=== PATIENT | female | born 1950 ===

== ENCOUNTER 2017-12-10 20:33 | Inpatient (IN) | payer MEDICAID ==
[~2017-12-10] VITALS: Ht 167.6 cm; Wt 63.5 kg
--- NOTE | 2017-12-10 22:20 | NUR ---
Dr. Tovar at bedside for MSE.
[2017-12-10] MEDS ORDERED: HYDROCODONE/APAP 5-325MG TABLET PO ONE (22:30)
[2017-12-10] MEDS ORDERED: HYDROCODONE/APAP 5-325MG TABLET ONE (22:34)
--- NOTE | 2017-12-10 23:00 | NUR ---
Patient in bed sleeping, no acute signs of distress.
--- NOTE | 2017-12-10 23:00 | NUR ---
Patient brought in by private ambulance. 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
[2017-12-11] MEDS ORDERED: VANCOMYCIN IV 1,000 MG in IV DEXTROSE 5% 250 ML IV ONE (00:15)
[2017-12-11] MEDS ORDERED: PIPERACILLIN SODIUM/TAZOBACTAM 3.375 G in IV DEXTROSE 5% 50 ML IV ONE (00:15)
[2017-12-11] MEDS ORDERED: ATOR40TA PO (00:37)
[2017-12-11] MEDS ORDERED: INSU100V7 SQ (00:37)
[2017-12-11] MEDS ORDERED: AMOX875T2 PO (00:37)
[2017-12-11] MEDS ORDERED: AMLO10TA2 PO (00:37)
[2017-12-11] MEDS ORDERED: sodium chloride PO (00:37)
[2017-12-11] MEDS ORDERED: BENA40TA2 PO (00:37)
[2017-12-11] MEDS ORDERED: RIVA20TA PO (00:37)
[2017-12-11] MEDS ORDERED: ASPI-605 PO (00:37)
[2017-12-11] MEDS ORDERED: GABA-534 PO (00:37)
[2017-12-11 00:45] LABS: BASOPHILS # (AUTO) 0.1 K/uL (0.0-8.0); BASOPHILS % (AUTO) 1.3 % (0.0-2.0); EOSINOPHILS # (AUTO) 0.1 K/uL (0.0-0.7); EOSINOPHILS % (AUTO) 1.5 % (0.0-7.0); HEMATOCRIT 25.1 % (31.2-41.9); HEMOGLOBIN 8.4 g/dL (10.9-14.3); LYMPHOCYTES # (AUTO) 2.1 K/uL (20.0-40.0); MEAN CORPUSCULAR HEMOGLOBIN 30.6 uug (24.7-32.8); MEAN CORPUSCULAR HGB CONC 33 g/dL (32.3-35.6); MEAN CORPUSCULAR VOLUME 91.7 fL (75.5-95.3); MONOCYTES # (AUTO) 0.4 K/uL (2.0-10.0); MONOCYTES % (AUTO) 7.3 % (0.0-11.0); NEUTROPHILS # (AUTO) 3.4 K/uL (1.8-8.9); NEUTROPHILS % (AUTO) 55.9 % (38.5-71.5); PLATELET COUNT (AUTO) 227 K/uL (179-408); RED BLOOD CELL COUNT(AUTO) 2.74 MIL/uL (3.63-4.92); WHITE BLOOD COUNT (AUTO) 6.1 K/uL (3.8-11.8)
[2017-12-11] MEDS ORDERED: PIPERACILLIN/TAZOBACTAM/D5W 50 ML IV ONE (00:45)
[2017-12-11] MEDS ORDERED: VANCOMYCIN IV 200 ML ONE (00:46)
--- NOTE | 2017-12-11 01:00 | NUR ---
Patient in bed sleeping, no acute signs of distress.
[2017-12-11 01:03] LABS: CARBON DIOXIDE 27 mmol/L (21-32); CHLORIDE 104 mmol/L (98-107); CREATININE 0.8 mg/dL (0.6-1.3); GLUCOSE 195 mg/dL (74-106); POTASSIUM 4.7 mmol/L (3.5-5.1); UREA NITROGEN, BLOOD 37 mg/dL (7-18)
[2017-12-11 01:15] LABS: ALANINE AMINOTRANSFERASE 37 U/L (14-59); ALKALINE PHOSPHATASE 131 U/L (50-136); ASPARTATE AMINOTRANSFERASE 28 U/L (15-37); BILIRUBIN,DIRECT < 0.1 mg/dL (0.0-0.2); BILIRUBIN,TOTAL 0.2 mg/dL (0.2-1.0); TOTAL PROTEIN, SERUM 7.6 g/dL (6.4-8.2)
--- NOTE | 2017-12-11 03:00 | NUR ---
Patient in bed sleeping, no acute signs of distress.
[2017-12-11 04:00] VITALS: BP 160/72
[2017-12-11] MEDS ORDERED: IV NS 1000 ML 1,000 ML IV ONE (04:45)
--- NOTE | 2017-12-11 04:55 | NUR ---
Dr. Tovar on panel call with Dr. Moreno.
--- NOTE | 2017-12-11 05:00 | NUR ---
Patient in bed sleeping, no acute signs of distress.
--- NOTE | 2017-12-11 05:45 | NUR ---
Passed report to Purnima MIGUEL Medsurg.
--- NOTE | 2017-12-11 07:30 | NUR ---
Received pt in bed awake. Alert and oriented x4, [place]an speaking only. On RA, No acute distress noted.Admitted for Right Foot Osteomyelitis. Right foot noted with Kerlix dressing in place. Left foot stump with sock, noted with dry scab. Oriented to call light and placed within reach.
[2017-12-11] MEDS: BLOOD SUGAR DIAGNOSTIC 1 EACH STRIP VI SCH ×4 (08:28→21:19)
[2017-12-11] MEDS ORDERED: DEXTROSE 50% 50 ML DISP.SYRIN IV PRN (08:30)
[2017-12-11] MEDS: INSULIN REGULAR, HUMAN 300 UNIT/3 ML VIAL SQ PRN ×3 (08:31→17:19)
[2017-12-11] MEDS: BENAZEPRIL HCL 20 MG TABLET PO SCH (09:00)
[2017-12-11] MEDS: AMLODIPINE 10 MG TABLET PO SCH (09:00)
--- NOTE | 2017-12-11 10:00 | NUR ---
Interviewed pt for general admission information Records Management Assistant ID: [id number]. Pt claims that she complained of her right foot condition at her previous facility and nothing was done about it. Will refer pt to manager social for follow up.
[2017-12-11] MEDS: GABAPENTIN 300 MG CAPSULE PO SCH ×3 (10:22→17:19)
[2017-12-11] MEDS: SODIUM CHLORIDE 1,000 MG TABLET PO SCH ×3 (10:22→17:19)
[2017-12-11] MEDS: ASPIRIN EC 81 MG TABLET.DR PO SCH (10:22)
[2017-12-11] MEDS ORDERED: AMOXICILLIN-CLAVUL 875-125MG TABLET PO SCH (11:30)
[2017-12-11] MEDS ORDERED: AMOX-430 PO (11:31)
[2017-12-11 11:32] VITALS: BP 104/51
--- NOTE | 2017-12-11 14:40 | NUR ---
WOUND CARE CONSULT: PT PRESENTS WITH MULTIPLE ESCHARS TO LOWER EXTREMITIES AND OPEN WOUND TO RT FOOT, PRESENT ON ADMISSION. PT NOTED TO HAVE SCARS TO BILATERAL LATERAL KNEES AND FRAGILE SACRAL SCAR. ALL SKIN PROTECTION AND WOUND CARE RECOMMENDATIONS DISCUSSED WITH NURSING STAFF. WILL SEE PRN. DOYLE IN AGREEMENT WITH PLAN OF CARE. CURRENT HUI SCORE IS 16. Addendum: 12/11/17 at 1442 by NURYS MAGANA RN Amended: Links added.
[2017-12-11 15:09] VITALS: BP 98/38
--- NOTE | 2017-12-11 16:31 | NUR ---
Spoke with Clifton from Dr. Ibarra office. Relayed that pt with order for Podiatry consult for R Foot Osteomylitis. Per Clifton, he will notify
[2017-12-11] MEDS: RIVAROXABAN 10 MG TABLET PO SCH (17:20)
--- NOTE | 2017-12-11 17:30 | NUR ---
Pt's daughter Jazmine at bedside. Answered all questions regarding pt's admitting diagnosis and social staff worker offered here at [facility]. Also requesting for release of information for personal use. Provided her with necessary paperwork.
--- NOTE | 2017-12-11 18:30 | NUR ---
Still awaiting [facility] bed for patient. Applied SCD. Jazmine Martin [phone] daughter at bedside gave number of social services specialist Gina as requested
--- NOTE | 2017-12-11 19:30 | NUR ---
PT IN ROOM ALERT AWAKE ORIENTED IN NO ACUTE DISTRESS. DENIES ANY PAIN OR DISCOMFORT. DRESSINGS INTACT TO RIGHT FOOT. NO S/S OF HYPER/HYPOGLYCEMIA. REMINDED PT TO REQEUST FOR ASSISTANCE WHEN NEEDED. ABLE TO FOLLOW SIMPLE COMMANDS. CONTINUE TO MONITOR. CALL LIGHT PLACED WITHIN REACH. PT TO START ON ATB IV.
--- NOTE | 2017-12-11 20:29 | NUR ---
CLINICAL PHARMACY NOTE: VANCOMYCIN DOSING Request for vancomycin dosing on 67 y/o female 167.64cm tall 63.5kg for right foot cellulitis Temp 98.6 BUN 37 Scr 0.8 WBC 6.1 also on cefepime Start vancomycin 1gm ivpb q18h estimated trough 13. Will order trough level prior to 4th dose. Will continue to monitor
[2017-12-11 20:44] VITALS: BP 107/54
[2017-12-11] MEDS ORDERED: CEFEPIME HCL 1 G in IV DEXTROSE 5% 50 ML IV SCH (21:00)
[2017-12-11] MEDS: ATORVASTATIN 40 MG TABLET PO SCH (21:14)
[2017-12-11] MEDS: CEFEPIME HCL 1 G in IV NORMAL SALINE 50 ML IV SCH (21:15)
[2017-12-11] MEDS: INSULIN GLARGINE,HUM 300 UNITS/3 ML CARTRIDGE SQ SCH (21:20)
[2017-12-11] MEDS: VANCOMYCIN IV 1 G in PREMIXED 0 EACH IV SCH (22:31)
[2017-12-12 05:38] VITALS: BP 125/54
--- NOTE | 2017-12-12 06:00 | NUR ---
PT IN ROOM ALERT AWAKE IN NO ACUTE DISTRESS. ABLE TO RECEIVE RECENT IV ATB WITH NO ADVERSE EFFECT. NO S/S OF HYPER/HYPOGLYCEMIA. NO ACTIVE DRAINAGE OR BLEEDING PRESENT TO AFFECTED AREAS ON LOWER EXTREMITIES. V/S ARE WNL. WOUND CULTURE TO RIGHT FOOT STILL PENDING. PT MADE AWARE OF AWAITING REPAIRER WOOD FURNITURE TO EVAL.
[2017-12-12] MEDS: PANTOPRAZOLE SODIUM 40 MG TABLET.DR PO SCH (06:12)
[2017-12-12] MEDS: BLOOD SUGAR DIAGNOSTIC 1 EACH STRIP VI SCH ×4 (06:59→21:14)
[2017-12-12] MEDS ORDERED: LIDOCAINE-MPF 1% 5 ML AMPUL MC STA (08:16)
[2017-12-12] MEDS: CEFEPIME HCL 1 G in IV NORMAL SALINE 50 ML IV SCH ×2 (08:54→21:19)
[2017-12-12] MEDS: GABAPENTIN 300 MG CAPSULE PO SCH ×3 (08:58→17:24)
[2017-12-12] MEDS: ASPIRIN EC 81 MG TABLET.DR PO SCH (08:58)
[2017-12-12] MEDS: SODIUM CHLORIDE 1,000 MG TABLET PO SCH ×3 (08:58→17:24)
[2017-12-12] MEDS: AMLODIPINE 10 MG TABLET PO SCH (08:58)
[2017-12-12] MEDS: BENAZEPRIL HCL 20 MG TABLET PO SCH (08:59)
--- NOTE | 2017-12-12 10:14 | NUR ---
PATIENT NOTED RESTING IN BED, STATES SHE HAS VERY LITTLE PAIN, NO SIGNS OF DISTRESS NOTED, CONSENT FOR SURGICAL DEBRIDEMENT SIGNED AND PLACED IN CHARGE, SURGICAL DEBRIDEMENT ON RIGHT FOOT PERFORMED BY MD JAMES. TOOK ALL AM MEDICATIONS WHOLE WITH OUT COMPLICATIONS, CALL LIGHT IN REACH BED LOCKED AND IN LOWEST POSITION.
[2017-12-12] MEDS: INSULIN REGULAR, HUMAN 300 UNIT/3 ML VIAL SQ PRN ×2 (11:21→17:12)
[2017-12-12 11:26] VITALS: BP 87/48
--- NOTE | 2017-12-12 12:02 | NUR ---
patient complaints of pain in right lower extremity, MD Galeano paged without response, awaiting returned call
[2017-12-12] MEDS ORDERED: HYDROCODONE/APAP 5-325MG TABLET PO PRN (13:15)
[2017-12-12 15:24] LABS: *BILIRUBIN,URIN NEGATIVE (NEGATIVE); *BLOOD, URINE 3+ (NEGATIVE); *COLOR,URINE YELLOW (YELLOW); *KETONES,URINE TRACE (NEGATIVE); *PROTEIN,URINE 1+ (NEGATIVE); *UROBILINOGEN,URINE 0.2 E.U./dl (NORMAL); LEUKOCYTE ESTERASE ,URINE NEGATIVE (NEGATIVE); NITRITE, URINE NEGATIVE (NEGATIVE); UGLUCOSE NEGATIVE (NEGATIVE)
[2017-12-12 15:28] VITALS: BP 82/49
[2017-12-12 15:51] LABS: *CLARITY,URINE SLIGHTLY CLOUDY (CLEAR)
[2017-12-12 15:54] LABS: BACTERIA,URINE FEW /HPF (NONE SEEN); MUCUS,URINE FEW /LPF (0-FEW); RBC,URINE 20-50 /HPF (0-3); SQUAMOUS EPITHELIAL CELL,UR MANY /HPF (NONE SEEN)
--- NOTE | 2017-12-12 16:03 | NUR ---
CLINICAL PHARMACY NOTE: VANCOMYCIN DOSING Continue vancomycin dosing on 67 y/o female 167.64cm tall 63.5kg for right foot cellulitis Temp 98.4 BUN 37(12/11) Scr 0.8 (12/11) WBC 6.1(12/09) also on cefepime Continue vancomycin 1gm ivpb q18h estimated trough 13. 3rd dose today at 1600. Will order trough level prior to 4th dose(not ordered yet). Will continue to monitor
[2017-12-12] MEDS: VANCOMYCIN IV 1 G in PREMIXED 0 EACH IV SCH (16:05)
[2017-12-12] MEDS: RIVAROXABAN 10 MG TABLET PO SCH (17:29)
--- NOTE | 2017-12-12 18:12 | NUR ---
UA COLLECTED VIA CLEAN CATCH AND SENT TO LAB, MD NIELSEN TELEPHONE ORDER 1)NORCO 5-325 PO Q6 HOUR PRN, 2)COLACE 200 MG PO CAPSULE HS
--- NOTE | 2017-12-12 19:30 | NUR ---
PT IN ROOM ALERT AWAKE IN NO ACUTE DISTRESS. DENIES ANY PAIN OR DISCOMFORT AT THIS TIME. NO INCREASED DRAINAGE OR BLEEDING NOTED TO RECENT DEBRIDEMENT PROCEDURE. PT REPOSITIONED AND REMINDED TO ASK FOR ASSISTANCE WHEN NEEDED. NO S/S OF HYPER/HYPOGLYCEMIA. CONTINUE TO MONITOR. CALL LIGHT PLACED WITHIN REACH.
[2017-12-12 20:37] VITALS: BP 99/54
[2017-12-12] MEDS: LACTOBACILLUS RHAMNOSUS GG 1 EACH CAPSULE PO SCH (21:18)
[2017-12-12] MEDS: INSULIN REGULAR, HUMAN 300 UNITS/3 ML VIAL SQ PRN (21:18)
[2017-12-12] MEDS: INSULIN GLARGINE,HUM 300 UNITS/3 ML CARTRIDGE SQ SCH (21:18)
[2017-12-12] MEDS: ATORVASTATIN 40 MG TABLET PO SCH (21:19)
[2017-12-12] MEDS: DOCUSATE SODIUM 100 MG CAPSULE PO SCH (21:19)
--- NOTE | 2017-12-13 01:00 | NUR ---
PT ASLEEP WITH NO C/O PAIN OR DISCOMFORT. SURGICAL DRESSING TO RIGHT FOOT INTACT WITH NO DRAINAGE OR ACTIVE BLEEDING NOTED. CONTINUE TO MONITOR.
--- NOTE | 2017-12-13 05:30 | NUR ---
PT IN ROOM ALERT AWAKE IN NO ACUTE DISTRESS. DRESSING TO RIGHT FOOT INTACT CLEAN AND DRY. NO REACTION TO RECENT MAXEPINE ABX IV THERAPY. NO FEVER, CHILLS, OR C/O SOB. ABLE TO FOLLOW SIMPLE COMMANDS. AIR MATTRESS IN PLACE WITH 3 SIDE RAILS RAISED. CONTINUE TO MONITOR. CALL LIGHT PLACED WITHIN REACH. PT REPOSITIONED AND REMINDED TO REQUEST FOR ASSISTANCE WHEN NEEDED.
[2017-12-13] MEDS: PANTOPRAZOLE SODIUM 40 MG TABLET.DR PO SCH (06:00)
[2017-12-13] MEDS: BLOOD SUGAR DIAGNOSTIC 1 EACH STRIP VI SCH ×4 (06:40→21:00)
[2017-12-13 06:42] VITALS: BP 116/65
--- NOTE | 2017-12-13 07:42 | NUR ---
received report from night nurse. patient stable, asleep with no s.s acute distress. call light noted to be within patients reach, will continue to monitor.
[2017-12-13] MEDS: SODIUM CHLORIDE 1,000 MG TABLET PO SCH ×3 (08:26→17:07)
[2017-12-13] MEDS: BENAZEPRIL HCL 20 MG TABLET PO SCH (08:29)
[2017-12-13] MEDS: AMLODIPINE 10 MG TABLET PO SCH (08:31)
[2017-12-13] MEDS: ASPIRIN EC 81 MG TABLET.DR PO SCH (08:31)
[2017-12-13] MEDS: GABAPENTIN 300 MG CAPSULE PO SCH ×3 (08:36→17:07)
[2017-12-13] MEDS: CEFEPIME HCL 1 G in IV NORMAL SALINE 50 ML IV SCH ×2 (08:36→21:18)
[2017-12-13] MEDS: LACTOBACILLUS RHAMNOSUS GG 1 EACH CAPSULE PO SCH ×2 (08:36→21:20)
[2017-12-13] MEDS: INSULIN REGULAR, HUMAN 300 UNIT/3 ML VIAL SQ PRN ×2 (08:47→11:29)
[2017-12-13] MEDS ORDERED: SODIUM HYPOCHLORITE 0.25% 480 ML BOTTLE TOP SCH (09:00)
--- NOTE | 2017-12-13 10:59 | NUR ---
CLINICAL PHARMACY NOTE: VANCOMYCIN DOSING S: Continue vancomycin dosing on 67 y/o female 167.64cm tall 63.5kg for right foot cellulitis O: Temp 98.8 BUN 37(12/11) Scr 0.8 (12/11) WBC 6.1(12/09) Plan Continue vancomycin 1gm ivpb q18h for now. 3rd dose today at 1000. Will order trough level prior to 4th dose(ordered for 12/14 at 0330-RN has been informed to hold 0400am dose if vanco trough level is above 20 mcg/ml). Pharmacy shall check the level in am & adjust the dose if needed. Will continue to monitor
[2017-12-13 11:03] VITALS: BP 104/48
[2017-12-13] MEDS: VANCOMYCIN IV 1 G in PREMIXED 0 EACH IV SCH (11:21)
[2017-12-13] MEDS: SODIUM HYPOCHLORITE 0.25% 480 ML BOTTLE TOP SCH (12:30)
[2017-12-13 15:08] VITALS: BP 115/69
[2017-12-13] MEDS: RIVAROXABAN 10 MG TABLET PO SCH (17:08)
--- NOTE | 2017-12-13 18:58 | NUR ---
patient stable this shift. no s.s distress or c/o pain. wound cleaned, dry dressing intact. VSS. IV antibiotics continuing. will endorse to rn night
[2017-12-13 20:00] VITALS: BP 144/73
[2017-12-13] MEDS: DOCUSATE SODIUM 100 MG CAPSULE PO SCH (21:19)
[2017-12-13] MEDS: ATORVASTATIN 40 MG TABLET PO SCH (21:20)
[2017-12-13] MEDS: INSULIN REGULAR, HUMAN 300 UNITS/3 ML VIAL SQ PRN (23:20)
[2017-12-13] MEDS: INSULIN GLARGINE,HUM 300 UNITS/3 ML CARTRIDGE SQ SCH (23:22)
[2017-12-14 04:47] VITALS: BP 113/61
[2017-12-14] MEDS: VANCOMYCIN IV 1 G in PREMIXED 0 EACH IV SCH ×2 (05:45→20:13)
[2017-12-14 06:32] LABS: BASOPHILS % (AUTO) 0.8 % (0.0-2.0); EOSINOPHILS # (AUTO) 0.1 K/uL (0.0-0.7); EOSINOPHILS % (AUTO) 1.2 % (0.0-7.0); HEMATOCRIT 28.1 % (31.2-41.9); HEMOGLOBIN 9.3 g/dL (10.9-14.3); LYMPHOCYTES # (AUTO) 1.7 K/uL (20.0-40.0); LYMPHOCYTES % (AUTO) 28.8 % (20.5-51.5); MEAN CORPUSCULAR HEMOGLOBIN 30.4 uug (24.7-32.8); MEAN CORPUSCULAR HGB CONC 33 g/dL (32.3-35.6); MEAN CORPUSCULAR VOLUME 91.3 fL (75.5-95.3); MONOCYTES # (AUTO) 0.4 K/uL (2.0-10.0); MONOCYTES % (AUTO) 6.5 % (0.0-11.0); NEUTROPHILS # (AUTO) 3.6 K/uL (1.8-8.9); NEUTROPHILS % (AUTO) 62.7 % (38.5-71.5); PLATELET COUNT (AUTO) 222 K/uL (179-408); RED BLOOD CELL COUNT(AUTO) 3.08 MIL/uL (3.63-4.92); WHITE BLOOD COUNT (AUTO) 5.8 K/uL (3.8-11.8)
[2017-12-14 06:33] LABS: ALANINE AMINOTRANSFERASE 42 U/L (14-59); ALKALINE PHOSPHATASE 100 U/L (50-136); ASPARTATE AMINOTRANSFERASE 26 U/L (15-37); BILIRUBIN,TOTAL 0.4 mg/dL (0.2-1.0); CARBON DIOXIDE 27 mmol/L (21-32); CHLORIDE 104 mmol/L (98-107); CREATININE 0.4 mg/dL (0.6-1.3); GLUCOSE 113 mg/dL (74-106); MAGNESIUM 1.9 mg/dL (1.8-2.4); PHOSPHOROUS 3.6 mg/dL (2.5-4.9); POTASSIUM 3.8 mmol/L (3.5-5.1); TOTAL PROTEIN, SERUM 7.6 g/dL (6.4-8.2); UREA NITROGEN, BLOOD 12 mg/dL (7-18)
[2017-12-14] MEDS: PANTOPRAZOLE SODIUM 40 MG TABLET.DR PO SCH (06:33)
[2017-12-14] MEDS: BLOOD SUGAR DIAGNOSTIC 1 EACH STRIP VI SCH ×4 (06:34→20:14)
--- NOTE | 2017-12-14 07:40 | NUR ---
received report from night nurse. patient stable, asleep with no s.s acute distress. call light noted to be within patients reach, will continue to monitor.
[2017-12-14] MEDS: INSULIN REGULAR, HUMAN 300 UNIT/3 ML VIAL SQ PRN ×3 (07:49→16:37)
[2017-12-14] MEDS: LACTOBACILLUS RHAMNOSUS GG 1 EACH CAPSULE PO SCH ×2 (08:25→20:13)
[2017-12-14] MEDS: GABAPENTIN 300 MG CAPSULE PO SCH ×3 (08:25→16:03)
[2017-12-14] MEDS: ASPIRIN EC 81 MG TABLET.DR PO SCH (08:25)
[2017-12-14] MEDS: SODIUM CHLORIDE 1,000 MG TABLET PO SCH ×3 (08:25→16:03)
[2017-12-14] MEDS: AMLODIPINE 10 MG TABLET PO SCH (08:26)
[2017-12-14] MEDS: BENAZEPRIL HCL 20 MG TABLET PO SCH (08:26)
[2017-12-14] MEDS: CEFEPIME HCL 1 G in IV NORMAL SALINE 50 ML IV SCH (08:38)
[2017-12-14] MEDS: SODIUM HYPOCHLORITE 0.25% 480 ML BOTTLE TOP SCH (08:39)
[2017-12-14 12:58] VITALS: BP 111/53
--- NOTE | 2017-12-14 15:10 | NUR ---
CLINICAL PHARMACY NOTE: VANCOMYCIN DOSING S: Continue vancomycin dosing on 67 y/o female 167.64cm tall 63.5kg for right foot cellulitis O: Temp 98.7 BUN 12 Scr 0.4 WBC 5.8 Vancomycin trough today at 0330 :11.3 A/P: Since Vancomycin trough is under 15, will change dose to 1 gram IV every 15 hrs(second dose today at 2000) and draw trough by 4th dose(not ordered yet) for expected trough around 15. Will monitor daily.
[2017-12-14 15:24] VITALS: BP 112/60
[2017-12-14] MEDS: RIVAROXABAN 10 MG TABLET PO SCH (17:32)
[2017-12-14] MEDS: LEVOFLOXACIN 500 MG TABLET PO SCH (20:00)
--- NOTE | 2017-12-14 20:00 | NUR ---
RECEIVED PATIENT AWAKE IN BED, SHE'S AOX3 MAINLY CITIZEN OF [place] SPEAKING. SHE DENIES ANY PAIN OR DISTRESS ON ASSESSMENT. SAFETY MEASURES IN PLACE, CALL LIGHT LEFT WITHIN PATIENT'S REACH
[2017-12-14] MEDS: DOCUSATE SODIUM 100 MG CAPSULE PO SCH (20:13)
[2017-12-14] MEDS: ATORVASTATIN 40 MG TABLET PO SCH (20:14)
[2017-12-14] MEDS: INSULIN GLARGINE,HUM 300 UNITS/3 ML CARTRIDGE SQ SCH (21:00)
[2017-12-15 04:00] VITALS: BP 119/60
[2017-12-15] MEDS: PANTOPRAZOLE SODIUM 40 MG TABLET.DR PO SCH (06:20)
[2017-12-15] MEDS: BLOOD SUGAR DIAGNOSTIC 1 EACH STRIP VI SCH ×4 (06:24→21:28)
--- NOTE | 2017-12-15 06:38 | NUR ---
PATIENT SLEPT WELL THROUGHOUT THE SHIFT, SHE DENIED PAIN OR ANY DISTRESS.V/S STABLE, NO FEVER.NO SIGNIFICANT CHANGES IN STATUS ON THIS SHIFT. SAFETY AND COMFORT MEASURES MAINTAINED AT ALL TIMES, CALL LIGHT LEFT WITHIN PATIENT'S REACH
--- NOTE | 2017-12-15 07:56 | NUR ---
RECEIVED PATIENT ON FIRST STEP ALEXA AWAKE ALERT MOSTLY [place] BUT UNDERSTANDS SOME POLISH PATIENT HAS A PERIPHERAL LINE ON HER LEFT FOREARM AND A PICC LINE ON HER RIGHT UPPER ARM ATTEMPTED TP REMOVE THE PERIPHERAL LINE BUT PATIENT REFUSED DOES NOT WANT ME TO TOUCH THE PICC LINE AT THIS TIME.DUE INSULIN GIVEN AND PATIENT ATE BREAKFAST.TURNED AND REPOSITIONED Q2H AND MADE COMFORTABLE.
[2017-12-15] MEDS: INSULIN REGULAR, HUMAN 300 UNIT/3 ML VIAL SQ PRN ×3 (07:57→17:09)
[2017-12-15] MEDS: LACTOBACILLUS RHAMNOSUS GG 1 EACH CAPSULE PO SCH ×2 (08:36→20:04)
[2017-12-15] MEDS: GABAPENTIN 300 MG CAPSULE PO SCH ×3 (08:36→17:02)
[2017-12-15] MEDS: ASPIRIN EC 81 MG TABLET.DR PO SCH (08:36)
[2017-12-15] MEDS: SODIUM CHLORIDE 1,000 MG TABLET PO SCH ×3 (08:36→17:02)
[2017-12-15] MEDS: SODIUM HYPOCHLORITE 0.25% 480 ML BOTTLE TOP SCH (08:36)
[2017-12-15] MEDS: BENAZEPRIL HCL 20 MG TABLET PO SCH (08:37)
[2017-12-15] MEDS: AMLODIPINE 10 MG TABLET PO SCH (08:37)
[2017-12-15] MEDS: VANCOMYCIN IV 1 G in PREMIXED 0 EACH IV SCH (11:36)
[2017-12-15 12:02] VITALS: BP 108/55
[2017-12-15] MEDS ORDERED: RXVAN XX (12:16)
[2017-12-15] MEDS ORDERED: VANC1PLA10 IV (12:16)
[2017-12-15] MEDS ORDERED: DOCU100C36 PO (12:16)
[2017-12-15] MEDS ORDERED: LEVO500T2 PO (12:16)
[2017-12-15] MEDS ORDERED: LACT1CAP57 PO (12:16)
[2017-12-15] MEDS ORDERED: PANT40TA2 PO (12:16)
--- NOTE | 2017-12-15 14:08 | NUR ---
PATIENT HAS A DISCHARGE ORDER SO I CALLED THE ANIMAL ANATOMY TEACHER RE PLACEMENT AND SHE STATED THAT THERE IS A PLACEMENT ISSUES AT THIS TIME WILL LET ME KNOW WHEN IT IS RESOLVED
--- NOTE | 2017-12-15 15:30 | NUR ---
CLINICAL PHARMACY NOTE: VANCOMYCIN DOSING S: Continue vancomycin dosing on 67 y/o female 167.64cm tall 63.5kg for right foot cellulitis O: Temp 98.3 BUN 12 (12/14) Scr 0.4 (12/14) WBC 5.8 (12/14) Vancomycin trough pending 0130 A/P: Will continue 1 gram IV every 15 hrs and draw trough by 4th dose(due tomorrow early am 0) for expected trough around 15. RN endorsed to hold dose if tr >20. Will check level in am and adjust as needed. Will monitor daily.
[2017-12-15 16:02] VITALS: BP 104/57
[2017-12-15] MEDS: RIVAROXABAN 10 MG TABLET PO SCH (17:03)
--- NOTE | 2017-12-15 18:00 | NUR ---
RESTING DENIES PAIN OR DISCOMFORTS TREATMENT TO RIGHT FOOT ORDERED PICTURES TAKEN AND DOCUMENTED MADE COMFORTABLE.
[2017-12-15] MEDS: LEVOFLOXACIN 500 MG TABLET PO SCH (18:36)
[2017-12-15 20:00] VITALS: BP 116/70
[2017-12-15] MEDS: ATORVASTATIN 40 MG TABLET PO SCH (20:04)
[2017-12-15] MEDS: DOCUSATE SODIUM 100 MG CAPSULE PO SCH (20:04)
[2017-12-15] MEDS: INSULIN GLARGINE,HUM 300 UNITS/3 ML CARTRIDGE SQ SCH (21:30)
[2017-12-16] MEDS ORDERED: VANCOMYCIN 1000 MG VIAL ONE (02:40)
[2017-12-16] MEDS: VANCOMYCIN IV 1 G in PREMIXED 0 EACH IV SCH ×2 (02:55→16:50)
[2017-12-16 06:01] VITALS: BP 153/80
[2017-12-16] MEDS: BLOOD SUGAR DIAGNOSTIC 1 EACH STRIP VI SCH ×4 (06:30→20:13)
[2017-12-16] MEDS: PANTOPRAZOLE SODIUM 40 MG TABLET.DR PO SCH (06:30)
--- NOTE | 2017-12-16 07:30 | NUR ---
ON FIRST STEP ALEXA FOR DECUB MANAGEMENT ALERT AND ORIENTED DENIES PAIN OR DISCOMFORTS.PICC LINE ON RIGHT UPPER ARM IS INTACT FLUSHED PER PROTOCOL MADE COMFORTABLE AND WILL COMTINUE TO OBSERVE.
[2017-12-16] MEDS: INSULIN REGULAR, HUMAN 300 UNIT/3 ML VIAL SQ PRN ×2 (07:56→12:01)
[2017-12-16] MEDS: ASPIRIN EC 81 MG TABLET.DR PO SCH (08:46)
[2017-12-16] MEDS: GABAPENTIN 300 MG CAPSULE PO SCH ×3 (08:46→16:45)
[2017-12-16] MEDS: SODIUM CHLORIDE 1,000 MG TABLET PO SCH ×3 (08:46→16:45)
[2017-12-16] MEDS: LACTOBACILLUS RHAMNOSUS GG 1 EACH CAPSULE PO SCH ×2 (08:46→20:10)
[2017-12-16] MEDS: BENAZEPRIL HCL 20 MG TABLET PO SCH (08:47)
[2017-12-16] MEDS: AMLODIPINE 10 MG TABLET PO SCH (08:47)
[2017-12-16] MEDS: SODIUM HYPOCHLORITE 0.25% 480 ML BOTTLE TOP SCH (08:49)
[2017-12-16 11:10] VITALS: BP 104/68
[2017-12-16 15:30] VITALS: BP 123/63
--- NOTE | 2017-12-16 15:56 | NUR ---
CLINICAL PHARMACY NOTE: VANCOMYCIN DOSING S: Continue vancomycin dosing on 67 y/o female 167.64cm tall 63.5kg for right foot cellulitis O: Temp 98.6 BUN 12 (12/14) Scr 0.4 (12/14) WBC 5.8 (12/14) Vancomycin trough 17.7 today at 0330 A/P: Since trough is within the range , will continue 1 gram IV every 15 hrs for now(5th dose due today at 1700). Will continue to monitor.
--- NOTE | 2017-12-16 16:00 | NUR ---
I FINALLY WAS ABLE TO CONVINCE PATIENT TO REMOVE THE HEPLOCK ON THE LEFT FOREARM SINCE SHE ALREADY HAS THE PICC LINE ON THE RIGHT UPPER ARM AND ITS PATENT AND FUNCTIONING AT THIS TIME.
--- NOTE | 2017-12-16 18:00 | NUR ---
TREATMENT REMAINS IN PROGRESS ORDERED WITH NO DRAINGE NOTED AT THIS TIME.REMAIN ON IV ANTIBIOTICS WITH NO ADVERSE OR ALLERGIC REACTIONS AT THIS TIME.MADE COMFORTABLE AND WILL CONTINUE TO OBSERVE.
[2017-12-16] MEDS: LEVOFLOXACIN 500 MG TABLET PO SCH (18:19)
[2017-12-16] MEDS: RIVAROXABAN 10 MG TABLET PO SCH (18:20)
--- NOTE | 2017-12-16 19:30 | NUR ---
PT RECEIVED IN BED, AWAKE. DAUGHTER AT BEDSIDE. A/OX2. [place] SPEAKING, BUT ABLE TO MAKE NEEDS KNOWN. V/S STABLE. IN NO ACUTE DISTRESS. NO C/O PAIN AT THIS TIME. PICC LINE INTACT AND PATENT. ON RA, TOLERATING WELL. AFEBRILE. ON FIRST STEP MATTRESS WITH HOB ELEVATED. SAFETY MEASURES IMPLEMENTED. BED ALARM SET. CALL LIGHT WITHIN REACH.
[2017-12-16] MEDS: ATORVASTATIN 40 MG TABLET PO SCH (20:10)
[2017-12-16] MEDS: DOCUSATE SODIUM 100 MG CAPSULE PO SCH ×2 (20:10→20:51)
[2017-12-16] MEDS: INSULIN GLARGINE,HUM 300 UNITS/3 ML CARTRIDGE SQ SCH (20:15)
[2017-12-16] MEDS: INSULIN REGULAR, HUMAN 300 UNITS/3 ML VIAL SQ PRN (20:17)
[2017-12-16 20:50] VITALS: BP 112/57
[2017-12-17 05:26] VITALS: BP 110/52
--- NOTE | 2017-12-17 05:50 | NUR ---
END OF SHIFT NOTES. PT SLEPT WELL THROUGHOUT SHIFT. IN STABLE CONDITION. BLOOD GLUCOSE CONTROLLED. TOLERATED RA, WELL. AFEBRILE. PICC LINE INTACT AND PATENT, HEP-LOCKED. CONT ON FIRST STEP MATTRESS. HOB REMAINS ELEVATED. ALL NEEDS ATTENDED. SAFETY MAINTAINED. CALL LIGHT WITHIN REACH.
[2017-12-17] MEDS: PANTOPRAZOLE SODIUM 40 MG TABLET.DR PO SCH (06:06)
[2017-12-17] MEDS: BLOOD SUGAR DIAGNOSTIC 1 EACH STRIP VI SCH ×2 (06:31→11:27)
--- NOTE | 2017-12-17 07:45 | NUR ---
RECEIVED PATIENT AWAKE ALERT AND AWARE WITH DAUGHTER AT HER BEDSIDE DENIES PAIN OR DISCOMFORTS AT THIS TIME.ON ROOM AIR WITH NO SHORTNESS OF BREATH NO S/S OF HYPO/HYPERGLYCEMIC REACTIONS AT THIS TIME.ON FIRST STEP MATTRASS FOR COMFORT AND TO MAINTAIN PROPER SKIN INTERGRITY.ASSISTED WITH REPOSITIONING DRESSING ON HER RIGHT FOOT REMAINS INTACT WITH DRESSING DRY AND INTACT MADE COMFORTABLE AND WILL CONTINUE TO OBSERVE.
[2017-12-17] MEDS: VANCOMYCIN IV 1 G in PREMIXED 0 EACH IV SCH (08:17)
[2017-12-17] MEDS: BENAZEPRIL HCL 20 MG TABLET PO SCH (08:40)
[2017-12-17] MEDS: SODIUM CHLORIDE 1,000 MG TABLET PO SCH ×2 (08:40→12:27)
[2017-12-17] MEDS: LACTOBACILLUS RHAMNOSUS GG 1 EACH CAPSULE PO SCH (08:40)
[2017-12-17] MEDS: ASPIRIN EC 81 MG TABLET.DR PO SCH (08:40)
[2017-12-17] MEDS: GABAPENTIN 300 MG CAPSULE PO SCH ×2 (08:40→12:27)
[2017-12-17] MEDS: AMLODIPINE 10 MG TABLET PO SCH (08:41)
[2017-12-17] MEDS: SODIUM HYPOCHLORITE 0.25% 480 ML BOTTLE TOP SCH (08:42)
--- NOTE | 2017-12-17 09:56 | NUR ---
CLINICAL PHARMACY NOTE: VANCOMYCIN DOSING S: Continue vancomycin dosing on 67 y/o female 167.64cm tall 63.5kg for right foot cellulitis O: Temp 98.6 BUN 12 (12/14) Scr 0.4 (12/14) WBC 5.8 (12/14) Vancomycin trough 17.7 (12/16) A/P: Will continue same dose of 1 gram IVPB every 15 hrs for today. Next dose is due today at 2300. Will continue to monitor.
[2017-12-17 11:50] VITALS: BP 151/75
[2017-12-17] MEDS: INSULIN REGULAR, HUMAN 300 UNIT/3 ML VIAL SQ PRN (12:27)
[2017-12-17 15:10] VITALS: BP 120/67
--- NOTE | 2017-12-17 15:15 | NUR ---
CALLED THE [facility] AND REPORT GIVEN TO LEANNE FOR CONTINUING CARE PATIENT WILL CONTINUE ON IV ANTIBIOTICS ORDERED PATIENT HAS A PICC LINE THAT IS INTACT AND PATENT.AMBULANCE WILL KEY ACCOUNT REPRESENTATIVE AT 1530 AND THE PATIENTS DAUGHTER NEVAEH IS AWARE OF DISCHARGE PLANS TO THE [facility]
--- NOTE | 2017-12-17 16:15 | NUR ---
PATIENT DISCHARGED PICKED UP BY THE AMBULANCE IN SATISFACTORY CONDITION WILL ALL HER /HER DAUGHTERS PERSONAL BELONGINGS.
== END 2017-12-17 16:15 | DRG 952 ==
LOC: ER 20:36 → TELE 12-11 05:33 → MED 12-11 14:15
PROVIDERS: ADMIT Internal Medicine; ATTEND Internal Medicine
PROC: 0QBN0ZZ Excision of Right Metatarsal, Open Approach (ICD-10-PCS; principal; 2017-12-12)
PROC: 05HY33Z Insertion of Infusion Device into Upper Vein, Percutaneous Approach (ICD-10-PCS; 2017-12-14)
DX: E11.52 Type 2 diabetes mellitus with diabetic peripheral angiopathy with gangrene (principal); E11.621 Type 2 diabetes mellitus with foot ulcer; E11.42 Type 2 diabetes mellitus with diabetic polyneuropathy; I48.91 Unspecified atrial fibrillation; L03.115 Cellulitis of right lower limb; E11.69 Type 2 diabetes mellitus with other specified complication; M86.8X7 Other osteomyelitis, ankle and foot; Z89.421 Acquired absence of other right toe(s); Z79.01 Long term (current) use of anticoagulants; Z79.4 Long term (current) use of insulin; Z79.899 Other long term (current) drug therapy; E78.5 Hyperlipidemia, unspecified; Z89.512 Acquired absence of left leg below knee; L97.514 Non-pressure chronic ulcer of other part of right foot with necrosis of bone; Z79.82 Long term (current) use of aspirin; I10 Essential (primary) hypertension
CPT/HCPCS: 36415; 36569; 70030-TC; 71045; 73630; 83605; 83735; 84100; 85025; 85730; 87040; 87070; 87077; 87086; 93005; 97165; A4217; A4663; C1751; C1758; J0692; J1815; J2543; J3370; J3490; J7030; J7050; J7060